=== PATIENT | male | born 1990 | race Caucasian/White ===

== ENCOUNTER 2020-05-27 17:15 | Emergency (ER) | payer BC ==
[~2020-05-27] VITALS: Ht 172.7 cm; Wt 109.1 kg
[2020-05-27 17:23] VITALS: BP 133/65; Ht 172.7 cm; Wt 109.1 kg
[2020-05-27 18:59] LABS: BASOPHILS 0.1 % (0-2); EOSINOPHILS 0.3 % (0-7); HEMATOCRIT 43.1 % (42.0-54.0); HEMOGLOBIN 15.3 g/dL (13.5-17.5); IMMATURE GRANULOCYTES 0.1 % (0-5); LYMPHOCYTE ABS# 0.35 10x3/uL (1.32-3.57); LYMPHOCYTES 3.6 % (15-50); MCH 32.3 pg (26.0-34.0); MCHC 35.5 g/dL (31.0-37.0); MCV 91.1 fL (80.0-100.0); MEAN PLATELET VOLUME 9.7 fL (7.4-10.4); MONOCYTES 3.2 % (2-11); NEUTROPHIL ABS# 9.07 10x3/uL (1.78-5.38); NEUTROPHILS 92.7 % (40-80); RBC 4.73 10x6/uL (4.20-6.10); RDW 13.1 % (11.5-14.5); WBC 9.8 10x3/uL (4.8-10.8)
[2020-05-27 19:00] LABS: PLATELET COUNT 169 10x3/uL (130-400)
[2020-05-27 19:12] LABS: CALC OSMOLALITY 274 mosm/kg (275-300); CALCIUM 8.8 mg/dL (8.5-10.1); CARBON DIOXIDE 21.9 mmol/L (21.0-32.0); CHLORIDE - SERUM 102 mmol/L (98-107); CREATININE - SERUM 1.2 mg/dL (0.6-1.3); GLUCOSE 101 mg/dL (74-106); POTASSIUM - SERUM 3.9 mmol/L (3.5-5.1); SODIUM 136 mmol/L (136-145); UREA NITROGEN 20 mg/dL (7-18); eGFR NON AFRICAN AMERICAN 75 mL/min (90-120)
[2020-05-27 19:19] LABS: ALBUMIN 4.2 g/dL (3.4-5.0); ALKALINE PHOSPHATASE 60 U/L (30-120); ALT (SGPT) 68 U/L (10-68); BILIRUBIN - TOTAL 0.69 mg/dL (0.2-1.3)
[2020-05-27] MEDS ORDERED: ZANAFLEX4 MG PO (19:32)
[2020-05-27] MEDS ORDERED: DICLOFENAC SODI50 MG PO (19:32)
[2020-05-27] MEDS ORDERED: MEDROL DOSE PACK4 MG PO (19:32)
[2020-05-27] MEDS ORDERED: HYDROCODON-ACE1 EAC7 PO (19:32)
== END 2020-05-27 19:45 | disposition home or self-care (01) ==
LOC: D.ER 17:15
PROVIDERS: Family Medicine
DX: M54.9 Dorsalgia, unspecified (principal); M51.36 Other intervertebral disc degeneration, lumbar region; J45.909 Unspecified asthma, uncomplicated

== ENCOUNTER 2020-05-29 14:47 | Emergency (ER) | payer BC ==
[~2020-05-29] VITALS: Ht 172.7 cm; Wt 102.3 kg
[~2020-05-29 14:47] MED LIST: DICLOFENAC SODI50 MG PO; HYDROCODON-ACE1 EAC7 PO; MEDROL DOSE PACK4 MG PO; ZANAFLEX4 MG PO
[2020-05-29 15:23] VITALS: BP 126/62; Ht 172.7 cm; Wt 102.3 kg
[2020-05-29 17:32] LABS: BASOPHILS 0.1 % (0-2); HEMATOCRIT 48.1 % (42.0-54.0); HEMOGLOBIN 16.8 g/dL (13.5-17.5); IMMATURE GRANULOCYTES 0.1 % (0-5); LYMPHOCYTE ABS# 1.17 10x3/uL (1.32-3.57); LYMPHOCYTES 15.6 % (15-50); MCHC 34.9 g/dL (31.0-37.0); MCV 91.6 fL (80.0-100.0); MONOCYTES 8.6 % (2-11); NEUTROPHILS 73.6 % (40-80); RBC 5.25 10x6/uL (4.20-6.10); RDW 13.7 % (11.5-14.5); WBC 7.5 10x3/uL (4.8-10.8)
[2020-05-29 17:37] LABS: PLATELET COUNT 230 10x3/uL (130-400)
[2020-05-29 17:39] LABS: ANION GAP 13.3 mmol/L (8-16); CALCIUM 9.4 mg/dL (8.5-10.1); CARBON DIOXIDE 26.4 mmol/L (21.0-32.0); CREATININE - SERUM 1.3 mg/dL (0.6-1.3); POTASSIUM - SERUM 3.7 mmol/L (3.5-5.1)
[2020-05-29 17:46] LABS: ALBUMIN 4.2 g/dL (3.4-5.0); BILIRUBIN - TOTAL 0.62 mg/dL (0.2-1.3); PROTEIN - SERUM 8.7 g/dL (6.4-8.2)
[2020-05-29] MEDS ORDERED: ZOFRAN ODT4 MG/UDTAB PO (20:12)
== END 2020-05-29 21:01 | disposition home or self-care (01) ==
LOC: D.ER 14:47
PROVIDERS: Emergency Medicine
DX: R55 Syncope and collapse (principal); R19.7 Diarrhea, unspecified; J45.909 Unspecified asthma, uncomplicated; S09.90XA Unspecified injury of head, initial encounter; W18.11XA Fall from or off toilet without subsequent striking against object, initial encounter; Y93.9 Activity, unspecified; Y92.9 Unspecified place or not applicable